=== PATIENT | male | born 1990 | race Caucasian/White ===

== ENCOUNTER → 2020-09-10 | Day surgery (SDC) | payer OTHER ==
[~2020-09-10] MED LIST: DEXAMETHASONE SOD PHOS INJ 4 MG/ML VIAL ONE; FENTANYL CITRATE/PF 100MCG/2 ML INJ ONE; KETOROLAC TROMETHAMINE 30 MG/ML VIAL ONE; LIDOCAINE 2%/ EPINEPHRINE 20ML MDV ONE; LIDOCAINE HCL 2% LOCAL INJ 5 ML SDV VIAL INJ ONE; MIDAZOLAM HCL 2 MG/2 ML VIAL ONE; MUPIROCIN 2% OINT 22 GM TUBE ONE; ONDANSETRON HCL INJ 2MG/ML 2ML 2 MG/ML VIAL ONE; PROPOFOL IV EMULSION 10 MG/ML 20 ML VIAL ONE; SEVOFLURANE INHAL SOLN 250 ML PEN BTL ONE
[2020-09-10 11:40] VITALS: BP 143/84
== END | disposition home or self-care (01) ==
LOC: OR 07:56
PROVIDERS: ATTEND Otolaryngology Otolaryngology/Facial Plastic Surgery
DX: L72.0 Epidermal cyst (principal); K21.9 Gastro-esophageal reflux disease without esophagitis; F41.9 Anxiety disorder, unspecified
CPT/HCPCS: 12052; 21014; 88304; J1100; J1885; J2001 ×2; J2250; J2405; J2704; J3010; 88305